=== PATIENT | female | born 1980 | race Caucasian/White ===

== ENCOUNTER 2016-11-30 09:33 | Inpatient (IN) | payer OTHER ==
[2016-11-30] MEDS ORDERED: CALCIUM GLUCONATE 4.65 MEQ/10 ML VIAL IV PRN ×2 (10:28→15:10)
[2016-11-30] MEDS ORDERED: RINGER'S SOLUTION,LACTATED 1,000 ML IV PRN (10:28)
[2016-11-30] MEDS ORDERED: ceFAZolin SODIUM/DEXTROSE,ISO 2 GM/50 ML BAG IV ONE (10:28)
[2016-11-30] MEDS ORDERED: MAGNESIUM SULFATE IN WATER 50 ML, MAGNESIUM SULFATE IN WATER 50 ML IV ONE ×2 (10:28)
[2016-11-30] MEDS ORDERED: OXYTOCIN 20 UNITS in RINGER'S SOLUTION,LACTATED 1,000 ML IV ONE ×2 (10:28→15:10)
[2016-11-30] MEDS ORDERED: MAGNESIUM SULFATE IN WATER 1,000 ML IV SCH ×2 (10:30→15:10)
[2016-11-30] MEDS ORDERED: LABETALOL HCL 5 MG/ML VIAL IV ONE (10:32)
[2016-11-30] MEDS: RINGER'S SOLUTION,LACTATED 1,000 ML IV PRN ×2 (10:55→13:05)
[2016-11-30] MEDS ORDERED: RINGER'S SOLUTION,LACTATED 1,000 ML IV ONE (13:40)
[2016-11-30] MEDS ORDERED: oxyCODONE HCL/ACETAMINOPHEN 1 TAB TABLET PO PRN (15:10)
[2016-11-30] MEDS ORDERED: SIMETHICONE 80 MG TAB.CHEW PO PRN (15:10)
[2016-11-30] MEDS ORDERED: DEXTROSE 5%-LACTATED RINGERS 1,000 ML IV PRN (15:10)
[2016-11-30] MEDS ORDERED: BISACODYL 10 MG SUPP.RECT RC PRN (15:10)
[2016-11-30] MEDS ORDERED: ONDANSETRON HCL/PF 2 MG/ML VIAL IV PRN (15:10)
[2016-11-30] MEDS ORDERED: SENNOSIDES 8.6 MG TABLET PO PRN (15:10)
--- NOTE | 2016-11-30 15:17 | OR ---
Operative Report - Dictated Report Narrative: Indication: 36-year-old 4 para 3 at 38-5/7 weeks with history of prior section 3, gestational diabetes-oral medication dependent, and chronic hypertension presents with severely elevated blood pressures. Pre Operative Diagnosis: 38-5/7 week intrauterine , prior section 3, gestational diabetes-oral medication dependent-chronic hypertension with acute exacerbation of severely elevated blood pressures, morbid obesity, desires permanent sterilization Post Operative Diagnosis: Same. Procedure: Repeat low transverse section. Abdominal scar revision - 16cm. Bilateral salpingectomy Surgeon: Izabella Sims DO Fuel Cell Binder: OR Staff Anesthesia: Spinal, TAP block Estimated Blood Loss: 450 mL Urine Output: 400 mL clear urine Fluids Replacement: 1875 mL Drains: Meade to gravity Surgical Complications: None Specimens: Placenta to freezer Findings: Male in cephalic presentation born at 1346 on 11/30/2014 with Apgars 8 and 9, weighing 3742 g. Normal uterus, tubes, ovaries Technique: The patient was taken to the operating room and placed in dorsal supine position with a left lateral tilt. After adequate spinal anesthesia, meade catheter inserted, SCDs placed, and 2 g of Ancef given preoperatively, the previous scar was excised in an elliptical fashion and the abdominal cavity was entered using sharp and blunt dissection. Two rolled laps were placed in the pericolic gutters on either side of the uterus. A transverse incision was made in the lower uterine segment and extended laterally and upwardly with digital traction. Clear fluid was noted upon amniotomy. The infant was delivered easily. The cord was clamped and cut and was handed off to awaiting solder sprayer. The placenta was allowed to deliver spontaneously. The uterus was cleared of clot and debris. Uterine incision was closed with 0 Vicryl using a running stitch. A second imbricating layer was placed. Excellent hemostasis was noted. The rolled laps were removed from the abdominal cavitiy. The peritoneum was closed with a running 3-0 Monocryl. The same suture was used to approximate the rectus and pyramidalis muscles. The fascia was closed with a running 0 Vicryl. The subcutaneous layer was closed with a running 3-0 Monocryl. The same suture was used to approximate the subdermal layer. The skin was closed with a running 4-0 Monocryl and Dermabond. Sponge, lap, needle, and instrument count were correct x 2. Disposition: To post anesthesia care unit in good condition History for MU Definition: * The number of deliveries resulting in a live the patient experienced prior to current hospitalization * The previous delivery of live twins or any live multiple gestation is considered one live event. *If primagravida or nulliparous is documented select zero for the number of previous live births. Live Events: 3
--- NOTE | 2016-11-30 15:32 | OR ---
Anesthesia Procedure Note - Anesthesia Procedure Note Narrative: Vital Signs - Last Taken Temp 36.3 C L 11/30/16 15:00 Pulse 70 11/30/16 15:25 Resp 18 11/30/16 15:25 BP 131/52 11/30/16 15:25 Pulse Ox 96 11/30/16 15:25 O2 Oxygen Delivery Method Room Air 11/30/16 15:29 ANESTHESIA PROCEDURE NOTE Date of procedure: 11/30/2016. Time of procedure: 1505. Performed by: Elijah Reid CRNA Customer Training Specialist: Lissy Escalera RN . Preprocedure diagnosis: Bilateral tap block for postoperative analgesia post section . Post procedure diagnosis: Same. Procedure: Ultrasound-guided bilateral tap block Indications: Postoperative analgesia. Findings: Patient placed in supine position in the PACU. Ultrasound guidance utilized to identify the fascial layer between the internal oblique and transverse abdominis muscle on first the right side. ChloraPrep used to prep the area. A 21-gauge 4 inch Stimuplex regional block needle was used to inject 20 mL of 0.25% Marcaine with epinephrine 1 200,000. Images retained. Procedure repeated on patient's left side. EBL: Minimal. Fluids: N/A. Specimen: N/A. Post procedure condition: The patient tolerated the procedure well. No complications were noted. Thank you for this consultation Elijah Reid CRNA
[2016-11-30] MEDS: oxyCODONE HCL/ACETAMINOPHEN 1 TAB TABLET PO PRN ×2 (16:14→21:15)
[2016-11-30] MEDS: IBUPROFEN 800 MG TABLET PO PRN (16:14)
[2016-11-30] MEDS: DOCUSATE SODIUM 100 MG CAPSULE PO SCH (21:10)
[2016-11-30] MEDS: ENOXAPARIN SODIUM 40 MG/0.4 ML SYRG SC SCH (21:10)
[2016-12-01] MEDS: IBUPROFEN 800 MG TABLET PO PRN ×4 (00:40→22:40)
[2016-12-01] MEDS: oxyCODONE HCL/ACETAMINOPHEN 1 TAB TABLET PO PRN ×4 (00:40→22:39)
--- NOTE | 2016-12-01 06:01 | PN ---
Subjective - Date and Time Seen Date: 12/01/16 Time: 05:53 Objective - Vitals Vitals: Last Vital Signs Temp 36.3 C L 12/01/16 03:00 Pulse 71 12/01/16 03:00 Resp 16 12/01/16 03:00 BP 136/72 12/01/16 03:00 Pulse Ox 97 12/01/16 03:00 Patient denies complaints. No headache, visual changes, nausea or vomiting. Pain well controlled with PO pain meds. Lochia wnl. Abdomen - soft, appropriately tender Incision - clean, dry, intact Uterus - firm, at umbilicus -1 No calf tenderness. SCDs in place and functioning properly. I/O (12h): 1896/1505, (1h) 195/150. IV fluids: Magnesium sulfate 2g/h, D5LR 125ml/h Impression: Post op day #1 s/p repeat section with bilateral salpingectomy and abdominal scar revision.. Chronic hypertension with severe exacerbation-resolving Plan: Continue routine post-operative/ care. Will advance diet to clear liquids. Stop magnesium sulfate at noon and begin ambulating 4 hours later. Cauti Physician Documentation - Urinary Catheter Management Urethral ([facility]) Date of Insertion: 11/30/16 Time of Insertion: 13:00
[2016-12-01] MEDS ORDERED: MAGNESIUM SULFATE IN WATER 1,000 ML IV SCH (09:00)
[2016-12-01] MEDS: DOCUSATE SODIUM 100 MG CAPSULE PO SCH ×2 (09:31→20:08)
[2016-12-01] MEDS: ENOXAPARIN SODIUM 40 MG/0.4 ML SYRG SC SCH (21:26)
[2016-12-02] MEDS: IBUPROFEN 800 MG TABLET PO PRN ×2 (04:49→14:06)
[2016-12-02] MEDS: oxyCODONE HCL/ACETAMINOPHEN 1 TAB TABLET PO PRN ×3 (04:49→20:51)
[2016-12-02] MEDS: DOCUSATE SODIUM 100 MG CAPSULE PO SCH ×2 (10:10→20:52)
--- NOTE | 2016-12-02 14:08 | PN ---
Subjective - Date and Time Seen Date: 12/02/16 Time: 14:08 Objective - Vitals Vitals: Last Vital Signs Temp 36.1 C L 12/02/16 10:15 Pulse 72 12/02/16 10:15 Resp 16 12/02/16 10:15 BP 145/83 12/02/16 10:15 Pulse Ox 97 12/02/16 10:15 Patient denies complaints. Ambulating well. Tolerating regular diet. Pain well controlled. Lochia wnl. Abdomen - soft, appropriately tender Incision - clean, dry, intact Uterus - firm, at umbilicus -2 No calf tenderness Impression: Post op day #2 s/p repeat section with bilateral salpingectomy and abdominal scar revision. Chronic hypertension with severe exacerbation-resolving Plan: Continue routine post-operative/ care Cauti Physician Documentation - Urinary Catheter Management Urethral ([facility]) Date of Insertion: 11/30/16 Time of Insertion: 13:00 Date of Removal: 12/01/16 Time of Removal: 15:15
[2016-12-02] MEDS: ENOXAPARIN SODIUM 40 MG/0.4 ML SYRG SC SCH (23:00)
[2016-12-03] MEDS: IBUPROFEN 800 MG TABLET PO PRN (04:46)
[2016-12-03] MEDS: oxyCODONE HCL/ACETAMINOPHEN 1 TAB TABLET PO PRN ×2 (04:46→09:54)
[2016-12-03] MEDS: DOCUSATE SODIUM 100 MG CAPSULE PO SCH (09:51)
[2016-12-03] MEDS ORDERED: LABETALOL HCL 100 MG TABLET PO SCH (12:15)
--- NOTE | 2016-12-03 12:30 | PN ---
Subjective - Date and Time Seen Date: 12/03/16 Time: 12:27 Objective - Vitals Vitals: Last Vital Signs Temp 36.5 C 12/03/16 07:00 Pulse 75 12/03/16 07:00 Resp 18 12/03/16 07:00 BP 163/76 12/03/16 07:00 Pulse Ox 96 12/03/16 07:00 Patient denies complaints. Ambulating without difficulty. Tolerating regular diet. Pain well controlled. Lochia wnl. Specifically denies headaches, visual changes, epigastric pain, or swelling. Abdomen - soft, appropriately tender Incision - clean, dry, intact Uterus - firm, at umbilicus -3 No calf tenderness DTR-2/4, no clonus Impression: Post op day #3 s/p repeat section with bilateral salpingectomy and abdominal scar revision. Chronic hypertension with severe exacerbation- persistent. Plan: Routine discharge instructions with the addition of preeclampsia precautions. Patient will be started on labetalol 100 mg by mouth twice a day. She is instructed to follow-up in the office on Wednesday for blood pressure check. Cauti Physician Documentation - Urinary Catheter Management Urethral ([facility]) Date of Insertion: 11/30/16 Time of Insertion: 13:00 Date of Removal: 12/01/16 Time of Removal: 15:15
[2016-12-03 12:32] VITALS: BP 158/75
== END 2016-12-03 13:00 | disposition home or self-care (01) | DRG 765 ==
LOC: OBCLINIC 09:33 → OB 10:21
PROVIDERS: ADMIT Obstetrics & Gynecology; ATTEND Obstetrics & Gynecology
PROC: 0UB70ZZ Excision of Bilateral Fallopian Tubes, Open Approach (ICD-10-PCS; 2016-11-30)
PROC: 4A1HXCZ Monitoring of Products of Conception, Cardiac Rate, External Approach (ICD-10-PCS; 2016-11-30)
PROC: 10D00Z1 Extraction of Products of Conception, Low, Open Approach (ICD-10-PCS; principal; 2016-11-30 13:00)
DX: O24.425 Gestational diabetes mellitus in childbirth, controlled by oral hypoglycemic drugs (principal); O99.12 Other diseases of the blood and blood-forming organs and certain disorders involving the immune mechanism complicating childbirth; Z68.41 Body mass index [BMI] 40.0-44.9, adult; I16.9 Hypertensive crisis, unspecified; O10.02 Pre-existing essential hypertension complicating childbirth; D69.6 Thrombocytopenia, unspecified; O99.214 Obesity complicating childbirth; E66.01 Morbid (severe) obesity due to excess calories; O99.824 Streptococcus B carrier state complicating childbirth; O34.211 Maternal care for low transverse scar from previous cesarean delivery; Z3A.39 39 weeks gestation of pregnancy; Z37.0 Single live birth